=== PATIENT | male | born 1980 | race Caucasian/White ===

== ENCOUNTER 2016-11-12 11:30 | Emergency (ER) | payer BC, OTHER, SELFPAY ==
[2016-11-12] MEDS ORDERED: cefTRIAXone\\ROCEPHIN 1 GM VIAL ONE (11:51)
[2016-11-12] MEDS ORDERED: Lidocaine 1% 20 ML MDV ONE (11:51)
== END 2016-11-12 12:08 | disposition home or self-care (01) ==
LOC: NAV ERS 11:30
DX: T63.301A Toxic effect of unspecified spider venom, accidental (unintentional), initial encounter (principal); L03.116 Cellulitis of left lower limb; E11.9 Type 2 diabetes mellitus without complications; I10 Essential (primary) hypertension; E66.9 Obesity, unspecified; F41.9 Anxiety disorder, unspecified; F17.210 Nicotine dependence, cigarettes, uncomplicated; Z79.84 Long term (current) use of oral hypoglycemic drugs; Z79.899 Other long term (current) drug therapy
CPT/HCPCS: 87070; 87205; 96372; J0696; J2001

== ENCOUNTER 2018-06-15 19:25 | Emergency (ER) | payer SELFPAY ==
[2018-06-15] MEDS ORDERED: Silver Sulfadiazine 1% Cream 50 GM JAR ONE (19:49)
[2018-06-15] MEDS ORDERED: HYDROcodone/Acetaminophen 5/325 mg Tablet ONE (20:07)
[2018-06-15] MEDS ORDERED: Adacel (T-DAP) 0.5 ML SYRINGE ONE (20:07)
== END 2018-06-15 20:24 | disposition home or self-care (01) ==
LOC: NAV ERS 19:25
DX: T24.201A Burn of second degree of unspecified site of right lower limb, except ankle and foot, initial encounter (principal); L03.115 Cellulitis of right lower limb; E11.9 Type 2 diabetes mellitus without complications; I10 Essential (primary) hypertension; E66.9 Obesity, unspecified; F41.9 Anxiety disorder, unspecified; F17.210 Nicotine dependence, cigarettes, uncomplicated; Z79.899 Other long term (current) drug therapy; Z79.84 Long term (current) use of oral hypoglycemic drugs; X08.8XXA Exposure to other specified smoke, fire and flames, initial encounter
CPT/HCPCS: 90471; 90715